=== PATIENT | female | born 2005 | race Caucasian/White ===

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

== ENCOUNTER 2024-02-16 12:07 | Outpatient (REF) | payer MEDICAID, SELFPAY ==
[2024-02-17 13:23] LABS: Bacterial Vaginosis (BV) Negative (Negative); Candida glabrata Negative (Negative); Candida species group Negative (Negative); Trichomonas vaginalis Negative (Negative)
[2024-02-17 15:29] LABS: Chlamydia Result Negative (Negative); GC Result Negative (Negative)
== END 2024-02-16 12:08 | disposition home or self-care (01) ==
LOC: LBN 12:07
PROVIDERS: PCP Student in an Organized Health Care Education/Training Program; Visit Provider Nurse Practitioner Family
DX: N93.9 Abnormal uterine and vaginal bleeding, unspecified (principal); R10.30 Lower abdominal pain, unspecified; N94.10 Unspecified dyspareunia
CPT/HCPCS: 81513; 87481; 87491; 87591; 87661; 87480; 87510; 87660

== ENCOUNTER 2024-03-08 16:25 | Emergency (ER) | payer MEDICAID, SELFPAY ==
[2024-03-08] VITALS (39 sets, daily range): BP systolic 127–168; BP diastolic 63–114; PULSE 78–132; RESP 15–27; TEMP 36.6; O2SAT 90–100
--- NOTE | 2024-03-08 16:15 | RT.EKG_ITS ---
APPROVED REPORT Exam: Resting ECG Reason for Exam: Tachycardia, Syncope Patient Location: E HR:119 bpm ECG Measurements Heart Rate 119 AXIS OH 147 P 67 QRSd 88 QRS 73 QT 318 T -60 QTc 448 Conclusion Sinus tachycardia...rate> 99 Abnormal T, consider ischemia, inferior leads...T <-0.20mV, II III aVF Normal Scalf ST changes are likely rate related. No previous for comparison.
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
[2024-03-08] MEDS: Lactated Ringers 1,000 ML 1000 ML IV ×2 (17:05→18:52)
[2024-03-08 17:22] LABS: Magnesium 2.2 mg/dL (1.8-2.4)
[2024-03-08 17:33] LABS: Troponin I < 50 ng/L (< or =60)
[2024-03-08 17:35] LABS: HCG Qual (Serum) Negative
--- NOTE | 2024-03-08 17:45 | DI.RAD_ITS ---
Exam(s) XR CHEST 2V PA LATERAL EXAM: XR CHEST 2V PA LATERAL CLINICAL HISTORY: CP SOB TECHNIQUE: 2D digital imaging was performed. Two views. COMPARISON: CR XR PORTABLE CHEST AP from 07/13/2022 FINDINGS: HEART: Normal size. Aorta: Not dilated. PULMONARY VASCULATURE: Normal. MEDIASTINUM: Unremarkable. LUNGS: Clear. PLEURAL SPACE: No pleural effusion or pneumothorax. BONE:Unremarkable for age. SOFT TISSUES: Unremarkable. IMPRESSION: No acute abnormality. DATA REPOSITORY: RADIATION DOSE DELIVERED:
[2024-03-08 17:56] LABS: D-Dimer 154 ng/mlFEU (<500)
[2024-03-08 18:38] LABS: *AMPHETAMINES SCREEN URINE Negative (Negative); *BARBITURATES SCREEN URINE Negative (Negative); *BENZODIAZEPINES SCREEN URINE Negative (Negative); Cannabinoids THC Negative (Negative); Cocaine Screen,Urine Negative (Negative); METHADONE URINE SCREEN Negative (Negative); OPIATES URINE SCREEN Negative (Negative)
[2024-03-08 18:56] LABS: Tricyclic Antidepressants Negative (Negative)
== END 2024-03-08 20:02 | disposition home or self-care (01) ==
PROVIDERS: Emergency Provider Emergency Medicine; PCP Student in an Organized Health Care Education/Training Program
DX: R00.0 Tachycardia, unspecified (principal); R07.9 Chest pain, unspecified; R94.31 Abnormal electrocardiogram [ECG] [EKG]
CPT/HCPCS: 80053; 80307; 85027; 93005; 96360; 99285; 71046; 83735; 84443; 84484; 84703; 85379; 93010; 99284

== ENCOUNTER 2024-03-08 21:19 | Outpatient (CLI) | payer MEDICAID, SELFPAY ==
[2024-03-08 14:26] LABS: Abs Immature Grans 0.02 10^3/uL (0.0-0.06); Absolute Basophil Count 0.04 10^3/uL (0.0-0.2); Absolute Eosinophil Count 0.24 10^3/uL (0.0-0.7); Absolute Lymphocyte Count 3.21 10^3/uL (1.2-3.4); Absolute Monocyte Count 0.51 10^3/uL (0.1-0.8); Absolute Neutrophil Count 4.38 10^3/uL (1.2-6.7); Basophils % 0.5 %; Eosinophils % 2.9 %; HCT 42.3 % (36.0-46.0); Immature Grans % 0.2 %; Lymphocytes % 38.2 %; MCHC 33.1 % (32.0-36.0); MCV 91 fL (80-95); MPV 9.8 fL (8.0-11.0); Monocytes % 6.1 %; Neutrophils % 52.1 %; Platelet Count 253 10^3/uL (130-400); RBC 4.67 10^6/uL (3.93-5.22); RDW 12.7 % (11.7-14.6); RDW-SD 42.3 fL
[2024-03-08 15:25] LABS: Iron 141 ug/dL (50-170); Total Iron Binding Capacity 393 ug/dL (250-450); Transferrin Sat 36 % (15-50)
[2024-03-08 15:28] LABS: ALT 17 U/L (14-59); AST 15 U/L (15-37); Albumin 4.3 g/dL (3.4-5.0); Alkaline Phosphatase 62 U/L (46-116); Anion Gap 13.3 mmol/L (3-11); BUN 9 mg/dL (7-18); Bilirubin, Total 0.52 mg/dL (0.2-1.0); CO2 22.7 mmol/L (21.0-32.0); CREATININE 0.8 mg/dL (0.55-1.02); Calcium 9.6 mg/dL (8.5-10.1); Chloride 102 mmol/L (98-107); Estimated GFR 108.78 (mL/min/1.73m2); Ferritin 27 ng/mL (8-252); Glucose 100 mg/dL (74-106); Potassium 3.6 mmol/L (3.5-5.1); Sodium 138 mmol/L (136-145); TSH (W/Ref FT4) 0.63 uIU/mL (0.52-4.13); Total Protein 8.3 g/dL (6.4-8.2)
== END 2024-03-08 21:20 | disposition home or self-care (01) ==
LOC: LBO 21:19
PROVIDERS: PCP Student in an Organized Health Care Education/Training Program; Visit Provider Nurse Practitioner Family
DX: R00.0 Tachycardia, unspecified (principal)
CPT/HCPCS: 36415; 80053; 82728; 83540; 83550; 84443; 85025

== ENCOUNTER 2024-03-27 14:53 | Emergency (ER) | payer MEDICAID, SELFPAY ==
[2024-03-27 14:59] VITALS: BP 132/87; PULSE 94; RESP 16; TEMP 37.1; O2SAT 99
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
--- NOTE | 2024-03-27 16:08 | NUR.NOTE ---
Faxed to Infusion the Rabies Vaccine Physician Order. Patient will be going to Infusion for the 03/30/24 injection. She will get the last 2 injections at [facility]. Patient was given a copy of the orders to take to [facility] for follow up injections. Apr 3: 03/30/24 to be done at [facility]. Apr 7: 04/03/24 to be done @ [facility]. Apr 10: 04/10/24 to be done @ [facility]. Nursing Note:
[2024-03-27] MEDS: Rabies Immune Globulin 1,500 UNIT/5 ML VIAL 1270.06 UNITS IM (16:39)
[2024-03-27] MEDS: Rabies vaccine (PCEC)/PF 2.5 UNITS/ML VIAL IM (16:40)
== END 2024-03-27 16:44 | disposition home or self-care (01) ==
PROVIDERS: Emergency Provider Emergency Medicine; PCP Student in an Organized Health Care Education/Training Program
DX: S60.512A Abrasion of left hand, initial encounter (principal); W64.XXXA Exposure to other animate mechanical forces, initial encounter; Z20.3 Contact with and (suspected) exposure to rabies; Z23 Encounter for immunization
CPT/HCPCS: 90375; 90471; 96372; 99284; 90675; 99283

== ENCOUNTER 2024-03-29 11:38 | Outpatient (REF) | payer MEDICAID, SELFPAY | END 2024-03-29 11:39 | disposition home or self-care (01) | LOC: LBN 11:38 | PROVIDERS: PCP Student in an Organized Health Care Education/Training Program; Visit Provider Student in an Organized Health Care Education/Training Program | DX: J02.9 Acute pharyngitis, unspecified (principal) | CPT/HCPCS: 87081 ==

== ENCOUNTER 2024-03-30 00:53 | Outpatient (RCR) | payer MEDICAID, SELFPAY ==
[2024-03-30] MEDS: Rabies vaccine (PCEC)/PF 2.5 UNITS/ML VIAL IM (09:00)
== END 2024-03-31 23:59 | disposition home or self-care (01) ==
LOC: INF 00:53
PROVIDERS: PCP Student in an Organized Health Care Education/Training Program; Visit Provider Emergency Medicine
DX: Z29.14 Encounter for prophylactic rabies immune globulin (principal); Z20.3 Contact with and (suspected) exposure to rabies
CPT/HCPCS: 96372; 90675

== ENCOUNTER 2024-05-11 09:19 | Outpatient (REF) | payer MEDICAID, SELFPAY | END 2024-05-11 09:20 | disposition home or self-care (01) | LOC: LBN 09:19 | PROVIDERS: PCP Student in an Organized Health Care Education/Training Program; Visit Provider Student in an Organized Health Care Education/Training Program | DX: R30.0 Dysuria (principal); B96.29 Other Escherichia coli [E. coli] as the cause of diseases classified elsewhere; R82.89 Other abnormal findings on cytological and histological examination of urine | CPT/HCPCS: 87077; 87086; 87186 ==

== ENCOUNTER 2024-05-14 19:23 | Outpatient (REF) | payer MEDICAID, SELFPAY ==
[2024-05-14 17:57] LABS: Bilirubin Negative (Negative); Blood Negative (Negative); Clarity Clear (Clear); Glucose Negative (Negative); Ketones Negative (Negative); Leukocyte Esterase Negative (Negative); Nitrite Negative (Negative); Urobilinogen 0.2 mg/dL (Up to 0.2); pH 6.5 (5-8)
== END 2024-05-14 19:24 | disposition home or self-care (01) ==
LOC: LBN 19:23
PROVIDERS: Student in an Organized Health Care Education/Training Program; PCP Student in an Organized Health Care Education/Training Program; Visit Provider Student in an Organized Health Care Education/Training Program
DX: R10.9 Unspecified abdominal pain (principal)
CPT/HCPCS: 81003

== ENCOUNTER 2024-09-10 01:25 | Outpatient (CLI) | payer MEDICAID, SELFPAY ==
--- NOTE | 2024-09-10 06:15 | DI.MRI_ITS ---
Exam(s) MR BRAIN WO EXAM: MR BRAIN WO CLINICAL HISTORY: changing migraine pattern,[id number] TECHNIQUE: Multiplanar multisequence MRI of the brain was performed. COMPARISON: MR MR BRAIN WO from 10/09/2019 FINDINGS: CEREBRAL PARENCHYMA: There is no evidence of intracranial hemorrhage, mass effect, or shift of midline structures. There are no extra-axial fluid collections. Ventricles are not enlarged or shifted. There is no significant focal signal abnormality in the cerebellar hemispheres nor within the constance, m idbrain, and thalami. There is no abnormal signal abnormality in the periventricular white matter. There is no significant focal signal abnormality evident on diffusion imaging to suggest acute ischem ic event. PITUITARY GLAND: No mass nor parasellar abnormality. No obvious abnormality in the cavernous sinuses. FLOW VOIDS: The expected flow void are noted. No evidence of obvious aneurysm nor obvious vascular ma lformation. PARANASAL SINUSES: The visualized paranasal sinuses appear unremarkable. No obvious finding ORBITS: No obvious findings. IMPRESSION: No significant intracranial findings on this noninfused MRI scan of the brain. DATA REPOSITORY:
== END 2024-09-10 01:45 ==
PROVIDERS: PCP Nurse Practitioner Family; Visit Provider Nurse Practitioner Adult Health
DX: G43.109 Migraine with aura, not intractable, without status migrainosus (principal)
CPT/HCPCS: 70551

== ENCOUNTER 2024-12-11 17:40 | Outpatient (REF) | payer MEDICAID, SELFPAY ==
[2024-12-13 12:11] LABS: Chlamydia Result Negative (Negative); GC Result Negative (Negative)
[2024-12-15 23:29] LABS: HSV 1 PCR Negative (Negative); HSV 2 PCR Negative (Negative); Specimen Source vaginal
== END 2024-12-11 17:41 | disposition home or self-care (01) ==
LOC: NCHCN 17:40
PROVIDERS: PCP Nurse Practitioner Family; Visit Provider Physician Assistant
DX: N89.8 Other specified noninflammatory disorders of vagina (principal)
CPT/HCPCS: 87491; 87529; 87591; 87480; 87510; 87660

== ENCOUNTER 2024-12-26 14:51 | Outpatient (REF) | payer MEDICAID, SELFPAY ==
[2024-12-26 21:47] LABS: Bilirubin Negative (Negative); Blood Trace-lysed (Negative); Clarity Clear (Clear); Glucose Negative (Negative); Ketones Negative (Negative); Leukocyte Esterase Trace (Negative); Nitrite Negative (Negative); Urobilinogen 0.2 mg/dL (Up to 0.2)
[2024-12-26 21:53] LABS: Bacteria Negative HPF (Negative); C & S Indicated? No; Crystals Negative HPF (Negative); Epithelial Cells Rare HPF (Negative); Mucus Negative (Negative); RBC 0-2 HPF (0-2)
== END 2024-12-26 14:52 | disposition home or self-care (01) ==
LOC: LBN 14:51
PROVIDERS: PCP Nurse Practitioner Family; Visit Provider Nurse Practitioner Family
DX: R39.9 Unspecified symptoms and signs involving the genitourinary system (principal)
CPT/HCPCS: 81003; 81015

== ENCOUNTER 2025-01-01 20:30 | Emergency (ER) | payer MEDICAID, SELFPAY ==
[2025-01-01 20:35] VITALS: BP 137/84; PULSE 123; RESP 20; TEMP 36.7; O2SAT 98
[2025-01-01 20:39] VITALS: BP 137/84; PULSE 123; RESP 20; TEMP 36.7; O2SAT 98
[2025-01-01 20:52] LABS: Bilirubin Negative (Negative); Blood Negative (Negative); Clarity Clear (Clear); Glucose Negative (Negative); Ketones Negative (Negative); Leukocyte Esterase Negative (Negative); Nitrite Negative (Negative); Specific Gravity 1.015 (1.005-1.025); Urobilinogen 0.2 mg/dL (Up to 0.2); pH 7.5 (5-8)
--- NOTE | 2025-01-01 21:00 | DI.CT_ITS ---
Exam(s) CT ABDOMEN PELVIS W EXAM: CT ABDOMEN PELVIS W CLINICAL HISTORY: Abdominal pain, fever, flank pain TECHNIQUE: Imaging Protocol: Axial computed tomography images with coronal and sagittal reformatted images were created and reviewed. CONTRAST MATERIAL: Intravenous: Omnipaque 350 Contrast volume:75 mL Oral: No COMPARISON: US ABDOMEN ULTRASOUND from 06/19/2009 FINDINGS: ABDOMEN: Lung Bases: No acute abnormality. Liver: Normal density. No measurable mass. Portal, Superior Mesenteric, and Splenic Veins: Unremarkable. Gallbladder and Biliary Tract: No radiodense calculus or dilation. Pancreas: Normal density, no abnormal calcifications or inflammatory process. Spleen: Normal. Adrenals: No masses seen. Kidneys: Normal size, contour and axis. No radiodense stones or obstructive uropathy. No masses seen. Abdominal Aorta: Abdominal portion non-dilated. Bowel: No obstruction or bowel wall thickening. Appendix is unremarkable. Peritoneal Cavity: No ascites, collection or mesenteric inflammatory response. No free air. Lymph Nodes: Within normal limits. Bones: Within normal limits for the patient's age. Soft Tissues: Unremarkable. PELVIS: Bladder: Symmetric distention, no gross wall thickening. Reproductive Organs: Unremarkable as visualized. Lymph Nodes: Within normal limits. Bones: Within normal limits for the patient's age. IMPRESSION: 1. No acute abdominal or pelvic process. 2. The preliminary [facility] report was reviewed. RADIATION DOSE DELIVERED: 239.68mGy.cm Total DLP DATA REPOSITORY: All CT scans at this facility are submitted to the National Radiology Data Registry (NRDR) Dose Index Registry (DIR) with the [employer] (A[employer]). RADIATION OPTIMIZATION: All CT scans at this facility use at least one of these dose optimization te chniques: automated exposure control; mA and/or kV adjustment per patient size (includes targeted exa ms where dose is matched to clinical indication); or iterative reconstruction.
--- NOTE | 2025-01-01 21:14 | ED.GENADUL_ITS ---
Discharge Plan Disposition Patient Disposition: Home Condition: Stable Discharge Details Clinical Impression: Abdominal pain, Hypokalemia Primary Care Provider: Digna Beltran ED Provider: Raiza Power Home Meds and New Rx's Prescriptions: No Action nitrofurantoin monohyd/m-cryst 100 mg capsule 100 mg PO BID Qty: 10 0RF Rx Instructions: Take 1 tablet by mouth with food twice a day for 5 days sumatriptan succinate 50 mg tablet 50 mg PO ONCE MDD 2 pills PRN (Reason: migraine headache) Qty: 30 4RF Rx Instructions: Take one tab at onset of headache. May repeat in 1 hour if no relief. propranolol 20 mg tablet 20 mg PO BID Qty: 180 1RF hydroxyzine HCl 25 mg tablet 25 mg PO TID PRN (Reason: panic or anxiety) Qty: 60 3RF metronidazole 500 mg tablet 500 mg PO Q12H Qty: 14 0RF fluconazole 150 mg tablet 150 mg PO ONCE Qty: 1 1RF Rx Instructions: as a single dose. Repeat in one week if needed Discharge Instructions Instructions: High Potassium Diet, Abdominal Pain, Adult ED Additional Instructions: No evidence for urinary tract infection or kidney infection at this time. The preliminary radiology report shows nothing acute however our in-house radiologist will overread it and if there is any abnormality we will call you if needed. Your potassium was just slightly low today you were given a supplement here in the emergency department. Increase foods high in potassium over the next couple days. Otherwise please follow-up with your primary care provider within the next 3 to 5 days for reevaluation. Follow up with primary care provider in 3-5 days. Return to ED sooner if any worsening pain, fever, vomiting or concerns. Please take Tylenol or Ibuprofen with food every 4-6 hours as needed for pain and swelling. Thank you for allowing us to care for you today. Referrals: Digna Beltran, [employer] [Primary Care Provider] - 1 week HPI General Mode of arrival: ambulatory . Date/Time Provider Initiated Documentation: 01/01/25 20:42 . Limitations to Documentation: no limitations . Information obtained by: patient, RN notes reviewed and old records reviewed . HPI Narrative: 19-year-old female presents to the ER with a chief complaint of dysuria generalized abdominal pain and back pain which began approximately 5 days ago. Patient was seen in urgent care diagnosed a UTI and given nitrofurantoin. She reports that her symptoms resolved couple days later so she did not start the antibiotic. She reports that her symptoms came back again today so she took 1 dose of the nitrofurantoin. She also endorses fever today of 100.5, nausea no vomiting and reports constipation. She is tachycardic upon arrival with a rate of 123. She is afebrile. Denies any vaginal discharge or bleeding or concerns for STDs. Related Data Home Medications ?Medication ?Instructions ?Recorded ?Confirmed hydroxyzine HCl 25 mg tablet 25 mg PO TID PRN panic or anxiety 11/16/24 01/01/25 #60 tabs propranolol 20 mg tablet 20 mg PO BID #180 tabs 11/16/24 01/01/25 sumatriptan succinate 50 mg tablet 50 mg PO ONCE PRN migraine 11/16/24 01/01/25 headache #30 tab-caps metronidazole 500 mg tablet 500 mg PO Q12H #14 tabs 12/12/24 01/01/25 fluconazole 150 mg tablet 150 mg PO ONCE #1 tab 12/14/24 01/01/25 nitrofurantoin 100 mg PO BID #10 caps 12/26/24 01/01/25 monohydrate/macrocrystals 100 mg capsule Previous Rx's ?Medication ?Instructions ?Recorded hydroxyzine HCl 25 mg tablet 25 mg PO TID PRN panic or anxiety 11/16/24 #60 tabs propranolol 20 mg tablet 20 mg PO BID #180 tabs 11/16/24 sumatriptan succinate 50 mg tablet 50 mg PO ONCE PRN migraine 11/16/24 headache #30 tab-caps metronidazole 500 mg tablet 500 mg PO Q12H #14 tabs 12/12/24 fluconazole 150 mg tablet 150 mg PO ONCE #1 tab 12/14/24 nitrofurantoin 100 mg PO BID #10 caps 12/26/24 monohydrate/macrocrystals 100 mg capsule Allergies Allergy/AdvReac Type Severity Reaction Status Date / Time metronidazole Allergy Mild Diarrhea Verified 12/26/24 13:34 General Stated Complaint: Urinary PEDRO: 4 Review of Systems All systems reviewed & are unremarkable except as noted in HPI and below Gastrointestinal Gastrointestinal: Reports as per HPI, Reports abdominal pain, Reports constipation and Reports nausea Genitourinary Genitourinary: Reports dysuria and Reports flank pain Exam Narrative Exam Narrative: Constitutional: Alert and oriented x3. Appears stated age. Normal body habitus. Head: Normocephalic, no trauma. Eyes: Pupils PERRL, Red reflex noted, EOM's intact. Eyelids symmetrical without lesions, discharge, or swelling. Chest: RRR, Normal S1, S2, distal pulses intact. Resp: Lungs clear to auscultation bilaterally, no wheezes, rales, or rhonchi. Abdomen: Soft, non-distended, Normoactive bowel sounds all 4 quads. Musculoskeletal: Normal gait, Moves all 4 extremities without difficulty. Skin: No suspicious rashes or lesions. Capillary refill less than 2 sec. Hematologic/Lymphatic: No ecchymosis, no lymphadenopathy. Course Vital Signs Vital signs: Vital Signs Temperature 36.7 C 01/01/25 20:35 Pulse 123 H 01/01/25 20:35 Respiratory Rate 20 01/01/25 20:35 Blood Pressure 137/84 01/01/25 20:35 Pulse Oximetry 98 01/01/25 20:35 Temperature 36.7 C 01/01/25 20:39 Pulse 123 H 01/01/25 20:39 Respiratory Rate 20 01/01/25 20:39 Blood Pressure 137/84 01/01/25 20:39 Blood Pressure Position Sitting 01/01/25 20:39 Pulse Oximetry 98 01/01/25 20:39 Oxygen Delivery Method Room Air 01/01/25 20:39 Oxygen Flow Rate 0 01/01/25 20:39 Lab/Test Results Lab/Test Results: Laboratory Tests Range/Units 01/01/25 20:40 Urine Color (Yellow) Yellow Urine Clarity (Clear) Clear Urine pH (5-8) 7.5 Ur Specific [place] (1.005-1.025) 1.015 Urine Protein (Neg-Trace) mg/dL Negative Urine Ketones (Negative) mg/dL Negative Urine Blood (Negative) Negative Urine Nitrite (Negative) Negative Urine Bilirubin (Negative) Negative Urine Urobilinogen (Up to 0.2) mg/dL 0.2 Ur Leukocyte Esterase (Negative) Negative Urine Glucose (Negative) mg/dL Negative POC- Test(urine) Negative Medical Decision Making 19-year-old female presents to the ER with a chief complaint of dysuria generalized abdominal pain and back pain which began approximately 5 days ago. Patient was seen in urgent care diagnosed a UTI and given nitrofurantoin. She reports that her symptoms resolved couple days later so she did not start the antibiotic. She reports that her symptoms came back again today so she took 1 dose of the nitrofurantoin. She also endorses fever today of 100.5, nausea no vomiting and reports constipation. She is tachycardic upon arrival with a rate of 123. She is afebrile. Denies any vaginal discharge or bleeding or concerns for STDs. No evidence of urinary tract infection. CBC CMP lipase CT abdomen pelvis ordered. CBC shows no leukocytosis, sodium 140 potassium 3.2 and creatinine within normal limits, magnesium added onto labs lipase 44. CT abdomen pelvis shows no acute abnormality. Discharged home to follow-up with PCP. This text was generated using [employer] system, please disregard any oddities of phrase or misspellings. Imaging Data Radiologic Study: Imaging: CT Scan Radiologist's impression: CR XR CHEST 2V PA LATERAL 03/08/2024 6:16 PM FINDINGS: Lungs: Clear Liver: The liver is unremarkable. Gallbladder and biliary ducts: No gallstones. Nondistended. No wall thickening. Pancreas: The pancreas is unremarkable. Spleen: No splenomegaly. No lesions. Adrenal glands: The adrenal glands are unremarkable. Kidneys and ureters: The kidneys are normal. Stomach and bowel: Moderate stool throughout the colon and rectum. Appendix: Normal appendix. Intraperitoneal space: Unremarkable. No free air. No significant fluid collection. Vasculature: Patent vessels without evidence of aneurysm, dissection, occlusion or critical stenosis. Lymph nodes: No mesentery adenopathy. No edema. Urinary bladder: No focal wall thickening of the urinary bladder. Reproductive: The uterus is retroverted. Bones/joints: No acute osseous abnormality. Soft tissues: Soft tissues are unremarkable as visualized. IMPRESSION: No acute findings. No renal calculus or hydroureteronephrosis Thank you for allowing us to participate in the care of your patient. Dictated and Authenticated by: Shavonne Kearns MD Lab Data Lab results reviewed: Yes I reviewed the patient's lab results. Labs: Laboratory Tests Range/Units 01/01/25 01/01/25 01/01/25 20:40 21:35 22:15 WBC (4.4-10.8) 10^3/uL 6.11 RBC (3.93-5.22) 10^6/uL 4.49 Hgb (11.2-15.7) g/dL 13.8 Hct (36.0-46.0) % 40.9 MCV (80-95) fL 91 MCH (27.0-33.0) pg 30.7 MCHC (32.0-36.0) % 33.7 RDW (11.7-14.6) % 12.0 Plt Count (130-400) 10^3/uL 258 MPV (8.0-11.0) fL 9.7 Immature Gran % % 0.3 Neutrophils % % 68.8 Lymphocytes % % 22.7 Monocytes % % 7.4 Eosinophils % % 0.3 Basophils % % 0.5 Nucleated RBC % (0.0-0.3) % 0.0 Absolute Neutrophils (1.2-6.7) 10^3/uL 4.20 Absolute Lymphocytes (1.2-3.4) 10^3/uL 1.39 Absolute Monocytes (0.1-0.8) 10^3/uL 0.45 Absolute Eosinophils (0.0-0.7) 10^3/uL 0.02 Absolute Basophils (0.0-0.2) 10^3/uL 0.03 Sodium (136-145) mmol/L 140 Potassium (3.5-5.1) mmol/L 3.2 L Chloride (98-107) mmol/L 101 Carbon Dioxide (21.0-32.0) mmol/L 27.6 Anion Gap (3-11) mmol/L 11.4 H BUN (7-18) mg/dL 11 Creatinine (0.55-1.02) mg/dL 0.8 Est GFR (CKD-EPI 2020) (mL/min/1.73m2) 108.11 Glucose (74-106) mg/dL 96 Calcium (8.5-10.1) mg/dL 9.5 Magnesium (1.8-2.4) mg/dL 2.0 Total Bilirubin (0.2-1.0) mg/dL 0.4 AST (15-37) U/L 23 ALT (14-59) U/L 25 Alkaline Phosphatase (46-116) U/L 75 Total Protein (6.4-8.2) g/dL 8.5 H Albumin (3.4-5.0) g/dL 4.2 Lipase (<78) U/L 44 Urine Color (Yellow) Yellow Urine Clarity (Clear) Clear Urine pH (5-8) 7.5 Ur Specific [place] (1.005-1.025) 1.015 Urine Protein (Neg-Trace) mg/dL Negative Urine Ketones (Negative) mg/dL Negative Urine Blood (Negative) Negative Urine Nitrite (Negative) Negative Urine Bilirubin (Negative) Negative Urine Urobilinogen (Up to 0.2) mg/dL 0.2 Ur Leukocyte Esterase (Negative) Negative Urine Glucose (Negative) mg/dL Negative Add-On Test Request DONE Quality:SDOH Health Related Social Needs: No Data to Display PFSH All Active Problems (Updated 01/01/25 @ 23:12 by Raiza Power NP) Hypokalemia (Acute) Abdominal pain (Acute) Generalized anxiety disorder (Chronic) Migraine headache without aura (Chronic) Migraine headache with aura (Chronic) Chronic headaches (Chronic) Contraceptive surveillance (Chronic) Acne (Chronic) Atopic dermatitis (Chronic) Family history of BRCA gene positive (Chronic) In mother and maternal grandfather who from pancreatic cancer Surgical History No pertinent past surgical history Family History Mother Hyperlipidemia BRCA gene mutation positive Radha is aware that there is positive BRCA gene mutation in family; siblings are NOT aware of this; she cannot be tested until 18 years of age Depression Father No problems noted. Sister No problems noted. Sister No problems noted. Brother No problems noted. Maternal Grandfather Pancreatic cancer BRCA gene mutation positive Diabetes Maternal Grandmother No problems noted. Paternal Grandfather No problems noted. Paternal Grandmother Cancer Diabetes Hyperlipidemia Hypertension Social History Smoking/Tobacco Use Status: Never Second Hand Exposure: No Smoking risk assessment performed?: Yes Alcohol Intake: current Alcohol Intake frequency: holidays/special occasions only Drug use: Rarely Substance use type: marijuana Counseling given: No Adopted: No Caregiver/Support person: No Household members: family and other Details: parents, siblings Housing: house Number of Children: 0 number of grandchildren: 0 Communication Needs: None Education Level: college Details: sophomore 24-25 in college in [place] Do you need help understanding health information?: Never current occupation: none Pets and animals: Yes Pets and animals: cat(s), dog(s) and other Details: bunny Sexually active: Yes Do you think of yourself as: straight/heterosexual Current gender identity: female What is your relationship status?: never How often do you talk on the phone with friends or family?: three or more times per week How often do you get together with friends or relatives?: three or more times per week How often do you attend restorationism or jainism services?: decline to answer Do you belong to any clubs or organized social groups?: no Panel score (0-1 are the most socially isolated patients): 1 NHANES result reviewed/action taken: Yes What type of physical activity do you participate in: regular exercise and other Details: Gym Duration: 30-45 minutes/day Frequency: 3-4 times per week Francoise/Sikh: None Special francoise needs: No Seatbelt use: always Helmet use: Yes Helmet use: always Drive intox or ride w/intox school bus driver/teacher assistant: No Firearms in home: Yes Firearms unloaded and locked: Yes Do you feel safe at home: Yes Do you feel safe in your relationship?: Yes Victim of physical abuse: No Victim of emotional abuse: No Victim of sexual abuse: No Would you like helpful sources: No PAWSS Have you Been Recently Intoxicated or Drunk Within the Last 30 days?: No Have you Ever Experienced Previous Episodes of Alcohol Withdrawal?: No Have you ever Experienced Withdrawal Seizures?: No Have you ever Experienced Delirium Tremens(DT)s?: No Have you ever undergone Alcohol Rehabilitation Treatment (i.e, inpt ot outpatient treatment programs)?: No Have you ever Experienced Blackouts?: No Have you ever Combined Alcohol with other Downers within the last 90 days?: No Have you ever Combined Alcohol with any other Substance of Abuse during the last 90 days?: No Positive Blood Alcohol level on Presentation? [PCS.BAL]: No Evidence of Increased Autonomic Activity (i.e. HR>120, tremor, sweating, agitation, nausea)?: No Result: 0
[2025-01-01 21:52] LABS: Abs Immature Grans 0.02 10^3/uL (0.0-0.06); Absolute Basophil Count 0.03 10^3/uL (0.0-0.2); Absolute Eosinophil Count 0.02 10^3/uL (0.0-0.7); Absolute Lymphocyte Count 1.39 10^3/uL (1.2-3.4); Absolute Monocyte Count 0.45 10^3/uL (0.1-0.8); Basophils % 0.5 %; Eosinophils % 0.3 %; HCT 40.9 % (36.0-46.0); HGB 13.8 g/dL (11.2-15.7); Immature Grans % 0.3 %; Lymphocytes % 22.7 %; MCH 30.7 pg (27.0-33.0); MCHC 33.7 % (32.0-36.0); MCV 91 fL (80-95); MPV 9.7 fL (8.0-11.0); Monocytes % 7.4 %; Neutrophils % 68.8 %; Platelet Count 258 10^3/uL (130-400); RBC 4.49 10^6/uL (3.93-5.22); WBC 6.11 10^3/uL (4.4-10.8)
[2025-01-01] MEDS: Omnipaque 350 MG/ML 100 ML BTL IJ (22:10)
[2025-01-01 22:11] LABS: ALT 25 U/L (14-59); AST 23 U/L (15-37); Albumin 4.2 g/dL (3.4-5.0); Alkaline Phosphatase 75 U/L (46-116); Anion Gap 11.4 mmol/L (3-11); BUN 11 mg/dL (7-18); Bilirubin, Total 0.4 mg/dL (0.2-1.0); CO2 27.6 mmol/L (21.0-32.0); CREATININE 0.8 mg/dL (0.55-1.02); Calcium 9.5 mg/dL (8.5-10.1); Chloride 101 mmol/L (98-107); Estimated GFR 108.11 (mL/min/1.73m2); Glucose 96 mg/dL (74-106); Lipase 44 U/L (<78); Potassium 3.2 mmol/L (3.5-5.1); Sodium 140 mmol/L (136-145); Total Protein 8.5 g/dL (6.4-8.2)
[2025-01-01] MEDS: Normal Saline - Diluent 50 ML VIAL IJ (22:25)
[2025-01-01] MEDS: Normal Saline Flush 10 ML SYR IVP (22:25)
[2025-01-01 22:49] LABS: Lab Add On Test DONE
--- NOTE | 2025-01-01 22:52 | DI.VRAD_ITS ---
PROCEDURE INFORMATION: Exam: CT Abdomen And Pelvis With Contrast Exam date and time: 01/01/2025 10:10 PM Age: 19 years old Clinical indication: Abdominal pain, fever, flank pain TECHNIQUE: Imaging protocol: Computed tomography of the abdomen and pelvis with contrast. Radiation optimization: All CT scans at this facility use at least one of these dose optimization techniques: automated exposure control; mA and/or kV adjustment per patient size (includes targeted exams where dose is matched to clinical indication); or iterative reconstruction. Contrast material: OMNIPAQUE 350; Contrast volume: 75 ml; Contrast route: INTRAVENOUS (IV); COMPARISON: CR XR CHEST 2V PA LATERAL 03/08/2024 6:16 PM FINDINGS: Lungs: Clear Liver: The liver is unremarkable. Gallbladder and biliary ducts: No gallstones. Nondistended. No wall thickening. Pancreas: The pancreas is unremarkable. Spleen: No splenomegaly. No lesions. Adrenal glands: The adrenal glands are unremarkable. Kidneys and ureters: The kidneys are normal. Stomach and bowel: Moderate stool throughout the colon and rectum. Appendix: Normal appendix. Intraperitoneal space: Unremarkable. No free air. No significant fluid collection. Vasculature: Patent vessels without evidence of aneurysm, dissection, occlusion or critical stenosis. Lymph nodes: No mesentery adenopathy. No edema. Urinary bladder: No focal wall thickening of the urinary bladder. Reproductive: The uterus is retroverted. Bones/joints: No acute osseous abnormality. Soft tissues: Soft tissues are unremarkable as visualized. IMPRESSION: No acute findings. No renal calculus or hydroureteronephrosis Dictated and Authenticated by: Shavonne Kearns MD. Orderin Tono Eastman MD
[2025-01-01] MEDS: Potassium Chloride 20 MEQ TABCR PO (23:22)
== END 2025-01-01 23:22 | disposition home or self-care (01) ==
PROVIDERS: Emergency Provider Registered Nurse Emergency; PCP Nurse Practitioner Family
DX: R10.84 Generalized abdominal pain (principal); M54.50 Low back pain, unspecified; E87.6 Hypokalemia
CPT/HCPCS: 80053; 81025; 83690; 99285; 74177; 81003; 83735; 85025; 99284; J3490